=== PATIENT | female | born 1940 | race Caucasian/White ===

== ENCOUNTER → 2024-03-26 15:33 | Outpatient (CLI) | payer MEDICARE, SELFPAY ==
--- NOTE | 2024-03-26 | DI.MRI.S_ITS ---
PROCEDURE: MR LUMBAR SPINE WO CON INDICATIONS: RADICULOPATHY, LUMBAR REGION TECHNIQUE: Noncontrast sagittal T1 spin echo and T2 fast echo, sagittal STIR, and T2 fast spin echo through the lumbar spine. In cases with scoliosis, additional coronal T2 fast spin echo may be performed. COMPARISON: [facility] [place], [place], XR LUMBAR SPINE 2 OR 3 VIEWS, 02/02/2024, 12:36. FINDINGS: Image quality: Excellent. Alignment and Curvature: Trace retrolisthesis of T12 on L1, L1 on L2, L2 on L3, and L3 on L4. Bone Marrow: Marrow is of normal overall signal. No acute vertebral body compression fractures. Spinal Cord: Conus medullaris terminates at the L1-L2. level. Visualized cord demonstrates normal signal and size. Paraspinous Soft Tissues: No paravertebral masses. T12-L1: Imaged in sagittal plane only. Severe disc height loss. Diffuse posterior disc post osteophyte. No canal stenosis or foraminal stenosis. L1-L2: Severe disc height loss. Retrolisthesis of L1 on L2. Posterior disc post osteophyte. Facet and ligament hypertrophy. No canal stenosis. Mild bilateral foraminal stenosis. L2-L3: Disc height loss. Trace retrolisthesis of L2 on L3. Diffuse posterior disc post osteophyte. Facet hypertrophy and prominent ligamentous hypertrophy. Severe canal stenosis. Clumping of nerve roots above this level. Moderate bilateral foraminal narrowing with flattening deformity on the exiting bilateral L2 nerve roots. L3-L4: Moderately large diffuse posterior disc post osteophyte. Prominent facet and ligament hypertrophy. Severe/high-grade canal stenosis, underestimated by choice of axial scan plane, easily visualized on sagittal T2 image 11 of series 4. [id number] bilateral foraminal stenosis. L4-L5: Severe chronic disc height loss. Posterior disc post osteophyte. Borderline canal stenosis. [id number] right foraminal stenosis. L5-S1: Chronic disc height loss. Disc bulge. Facet hypertrophy. No significant canal stenosis. Mild bilateral foraminal stenosis. IMPRESSION: 1. There is extensive diffuse degenerative change present. Findings include multilevel facet arthropathy. 2. Canal stenosis is severe at L2-L3 and severe/high-grade at L3-L4. 3. Multilevel foraminal narrowing as described above. Findings include moderate bilateral foraminal narrowing at L2-L3. Dictated by: Anirudh Randolph M.D. on 03/26/2024 at 19:21 Approved by: Anirudh Randolph M.D. on 03/26/2024 at 19:27
== END ==
PROVIDERS: PCP Nurse Practitioner; Referring Provider Physical Medicine & Rehabilitation; Visit Provider Physical Medicine & Rehabilitation
DX: M47.26 Other spondylosis with radiculopathy, lumbar region (principal); M47.27 Other spondylosis with radiculopathy, lumbosacral region; M48.061 Spinal stenosis, lumbar region without neurogenic claudication; M48.07 Spinal stenosis, lumbosacral region
CPT/HCPCS: 72148